=== PATIENT | male | born 1945 | race Caucasian/White ===

== ENCOUNTER → 2024-03-13 | Outpatient (CLI) | payer MEDICARE, OTHER, SELFPAY ==
--- NOTE | 2024-03-13 09:36 | PR.ITP_ITS ---
General Information2 General Information Admitting Diagnosis: COPD Secondary Diagnosis: HTN, Hyperlipidemia, GERD, COVID-19 06/21/2022 Gold Classification:: GOLD 3: Severe (GOLD Classification: severe FEV1 37%) PFT FEV1:: 39 FVC:: 103 FEV1/FVC%:: 37 Personal Learning Style/Barriers Personal Learning Style:: Audio/Visual and Written Barriers to Learning: Vision impaired Stage of change r/t lifestyle modifications: Contemplation Educational Classes IL: Living with Chronic Lung Disease: Initial Assessment, Breathing Retraining: Initial Assessment, Exercise: Initial Assessment, Energy Conservation: Initial Assessment and Medications: Initial Assessment Education/Goals Individual Counseling: Initial Assessment: High Blood Pressure [place] Patient Goals: Increase muscle strength: Initial Assessment, Experience less dyspnea: Initial Assessment, Improve energy level: Initial Assessment, Participate in home exercise: Initial Assessment, Improve the ability to cope with ADLs: Initial Assessment, Improve knowledge of lung disease: Initial Assessment, Understand how to use medications: Initial Assessment, Increase knowledge of oxygen use: Initial Assessment, Control panic/anxiety: Initial Assessment, Improve my quality of life: Initial Assessment and Reduce Stress/relaxation techniques: Initial Assessment Exercise - Initial Assessment Visit Date of Eval: 03/13/24 Session Number:: 0 (pre-program evaluation) Problem/Goals Problems: Deconditioning, Knowledge deficit exercise guidelines and Knowledge deficit exercise safety Goals:: IL: 2-3/wk for 18 weeks [36 sessions] Functional Capacity Test Number of feet walked: 640 Lowest SPO2 %: 87 O2 L/M: 2 Physician Prescribed Exercise Modalities: Treadmill, Airdyne and NuStep Frequency (days/week): 3 Duration (Minutes):: 30-45 Intensity: 60-80% of age predicted maximum heart rate reserve Current METSs:: 3.0 Target HR:: 107 (THRR 92-107) Resting Blood Pressure: 130/76 Minimum SpO2 with exercise: 98 EKG Type: NSR Plan Plan and Plan to Review:: Benefits of exercise, Core components of exercise, How to measure dyspnea level, How to monitor dyspnea level, Exercise intensity, Home exercise guidelines and Lisa: 3-4/11-13 Home Exercise Mode: Walking Nutrition/Wt Mgmt - Initial Visit Date of Eval: 03/13/24 Session Number:: 0 (Pre-program evaluation) Problems/Goals Goals: BMI 21-25 Weight Management Admit Height:: 5 ft 6 in Admit Weight:: 150 lb Admit BMI:: 24.2 Intervention Referral to dietitian:: No Will attend diet classes:: Yes Intervention/Plan: Instruct on ideal BMI & set weight loss goal w/patient Plan Nutrition Plan: Yes: Review BMI or WC & identify target wt & strategies for wt control and Yes: Nutrition education class: Nutrition/Wt Mgmt - 30-Day Visit Session Number:: 0 (Pre-program evaluation) Weight Management Height: 5 ft 6 in Weight:: 150 lb BMI: 24.2 Nutrition/Wt Mgmt - 60-Day Visit Session Number:: 0 (Pre-program evaluation) Weight Management Height: 5 ft 6 in Weight:: 150 lb BMI: 24.2 Nutrition/Wt Mgmt - 90-Day Visit Session Number:: 0 (Pre-program evaluation) Weight Management Height: 5 ft 6 in Weight:: 150 lb BMI: 24.2 Nutrition/Wt Mgmt - Final Visit Session Number:: 0 (Pre-program evaluation) Weight Management Height: 5 ft 6 in Weight:: 150 lb BMI: 24.2 Psychosocial - Initial Assess Visit Date of Eval: 03/13/24 Session Number:: 0 (Pre-program evaluation) Problems/Goals History of Emotional Disorders: None Psychosocial Goals: 1. Patient is free from overwhelming symtoms of depression (or anxiety, 2. Identifies personal stressors & states the strategies for managing, 3. Identifies activities to decrease isolation and/or symptoms of, 4. Improved psychosocial coping skills., 5. Verbalizes coping strategies., 6. Adequate treatment of depression. and 7. Improved Q.O.L. Psychosocial Test Tool Used:: Pulmonary QOL and PHQ-9 Questionnaire Referred to MD for counseling:: No Referral to Behavioral Health PS - Interventions: Yes: Attend Stress Management Classes and No: Referral to Behavioral Health if PHQ-9 score >9:, No: Referral to [facility] and No: Referral to Physician if PHQ-9 if score is 5-9: Intervention/Plan: See List Interventions/Plan:: Assess stressors,coping strategies & signs of derpression on admission, Instruct/assist pt to develop coping & personal stress Mgt strategies, Instruct patient to recognize signs & symptoms of depression and Instruct patient to recog Psychosocial - 30-Day Visit Session Number:: 0 (Pre-program evaluation) Problems/Goals History of Emotional Disorders: None Psychosocial Goals: 1. Patient is free from overwhelming symtoms of depression (or anxiety, 2. Identifies personal stressors & states the strategies for managing, 3. Identifies activities to decrease isolation and/or symptoms of, 4. Improved psychosocial coping skills., 5. Verbalizes coping strategies., 6. Adequate treatment of depression. and 7. Improved Q.O.L. Psychosocial Test Tool Used:: Pulmonary QOL and PHQ-9 Questionnaire Referred to MD for counseling:: No Referral to Behavioral Health PS - Interventions: Yes: Attend Stress Management Classes and No: Referral to Behavioral Health if PHQ-9 score >9:, No: Referral to [facility] and No: Referral to Physician if PHQ-9 if score is 5-9: Plan Interventions/Plan:: Assess stressors,coping strategies & signs of derpression on admission, Instruct/assist pt to develop coping & personal stress Mgt strategies, Instruct patient to recognize signs & symptoms of depression and Instruct patient to recog Psychosocial - 60-Day Visit Session Number:: 0 (Pre-program evaluation) Problems/Goals History of Emotional Disorders: None Psychosocial Goals: 1. Patient is free from overwhelming symtoms of depression (or anxiety, 2. Identifies personal stressors & states the strategies for managing, 3. Identifies activities to decrease isolation and/or symptoms of, 4. Improved psychosocial coping skills., 5. Verbalizes coping strategies., 6. Adequate treatment of depression. and 7. Improved Q.O.L. Psychosocial Test Tool Used:: Pulmonary QOL and PHQ-9 Questionnaire Referred to MD for counseling:: No Referral to Behavioral Health PS - Interventions: Yes: Attend Stress Management Classes and No: Referral to Behavioral Health if PHQ-9 score >9:, No: Referral to [facility] and No: Referral to Physician if PHQ-9 if score is 5-9: Plan Interventions/Plan:: Assess stressors,coping strategies & signs of derpression on admission, Instruct/assist pt to develop coping & personal stress Mgt strategies, Instruct patient to recognize signs & symptoms of depression and Instruct patient to recog Psychosocial - 90-Day Visit Session Number:: 0 (pre-program evaluation) Problems/Goals History of Emotional Disorders: None Psychosocial Goals: 1. Patient is free from overwhelming symtoms of depression (or anxiety, 2. Identifies personal stressors & states the strategies for managing, 3. Identifies activities to decrease isolation and/or symptoms of, 4. Improved psychosocial coping skills., 5. Verbalizes coping strategies., 6. Adequate treatment of depression. and 7. Improved Q.O.L. Psychosocial Test Tool Used:: Pulmonary QOL and PHQ-9 Questionnaire Referred to MD for counseling:: No Referral to Behavioral Health PS - Interventions: Yes: Attend Stress Management Classes and No: Referral to Behavioral Health if PHQ-9 score >9:, No: Referral to [facility] and No: Referral to Physician if PHQ-9 if score is 5-9: Plan Interventions/Plan:: Assess stressors,coping strategies & signs of derpression on admission, Instruct/assist pt to develop coping & personal stress Mgt strategies, Instruct patient to recognize signs & symptoms of depression and Instruct patient to recog Psychosocial - Final Assess Visit Session Number:: 0 (pre-program evaluation) Problems/Goals History of Emotional Disorders: None Psychosocial Goals: 1. Patient is free from overwhelming symtoms of depression (or anxiety, 2. Identifies personal stressors & states the strategies for managing, 3. Identifies activities to decrease isolation and/or symptoms of, 4. Improved psychosocial coping skills., 5. Verbalizes coping strategies., 6. Adequate treatment of depression. and 7. Improved Q.O.L. Psychosocial Test Tool Used:: Pulmonary QOL and PHQ-9 Questionnaire Referred to MD for counseling:: No Referral to Behavioral Health PS - Interventions: Yes: Attend Stress Management Classes and No: Referral to Behavioral Health if PHQ-9 score >9:, No: Referral to [facility] and No: Referral to Physician if PHQ-9 if score is 5-9: Plan Interventions/Plan:: Assess stressors,coping strategies & signs of derpression on admission, Instruct/assist pt to develop coping & personal stress Mgt strategies, Instruct patient to recognize signs & symptoms of depression and Instruct patient to recog Oxygen & Oxygen Titration Init Visit Date of Eval: 03/13/24 Session Number:: 0 (Pre-program evaluation) Initial Assessment Oxygen on Admission: Continuous home use (2 liters ) SpO2:: 98 Port O2:: 2 liters Goal Oxygen & Oxygen Tritration Goals: Effective hypoxemia control and Uses O2 as Rx'd/safely Plans Plan: Monitor SpO2 rest & with exercise, Train appropriate O2 use at rest, Train appropriate O2 use with exercise and Train O2 safety & systems Reviewed prescribed medications:: Purpose, Schedule, Side effects and Importance of compliance Instruct correct technique/timing & care:: MDI, DPI and Return demo use of inhaler Bronchial Hygiene Plan: Hydration, Hand hygiene, When to call MD and Signs/symptoms to report: Oxygen & Oxygen Titration 30D Visit Session Number:: 0 (pre-program evaluation) Reassessment SpO2:: 98 Oxygen & Oxygen Titration 60D Visit Session Number:: 0 (pre-program evaluation) Reassessment SpO2:: 98 Oxygen & Oxygen Titration 90D Visit Session Number:: 0 (pre-program evaluation) Reassessment SpO2:: 98 Oxygen & Oxygen Titration [place] Visit Session Number:: 0 (pre-program evaluation) Reassessment SpO2:: 98 Core Components - Initial Visit Date of Eval: 03/13/24 Session Number:: 0 (pre-program evaluation) Hypertension Hypertension Diagnosis:: Hypertension ICD-10 I10 BP: 130/76 [place] [employer] Hypertension Guidelines Low Sodium diet: No Outcomes/Goals: Able to verbalize/achieve optimal blood pressure <130/80 and Incorporates diet changes & exercise for blood pressure control by DC Tobacco - Initial Assessment Tobacco Program Goals Stages of Change:: Action Do you have family support?: Yes Tobacco Use: Non-smoker (Quit smoking in 2009.) Do you use smokeless tobacco?: No Smoking Cessation Referral:: No Individual Education/Counseling:: No Education Schedule Given:: Yes Exacerbation Mgmt & Airway Clearance Problems:: Hypoxemia Hypoxemia Goals:: Hypoxemia managed, Port system and Using O2 as Rx's safely Bronchial Hygiene Problems:: Respiratory infection Prevention/Management Goals: Pt demonstrates effective cough, effective secretion clearance. and Pt describes signs and symptoms of infection. Plan: Monitor SpO2 rest & with exercise, Train appropriate O2 use at rest, Train appropriate O2 use with exercise and Train O2 safety & systems Instruct correct technique/timing & care:: MDI, DPI and Return demo use of inhaler Bronchial Hygiene Plan: Hydration, Hand hygiene, When to call MD and Signs/symptoms to report: Medication Medication Problems: Incorrect inahled Rx use, technique Interventions/plans: Instruct on medication effects & side effects, Review medication list w/patient every two weeks and Instruct importance of taking meds as ordered & assist problem solving Medication Goals: Adherence to prescribed medications and Correct technique/timing & care of MDI, DPI, nebulizer, and spacer. Does pt report taking home meds as prescribed?: Yes Medications: Yes: MDI and Yes: DPI and N/A: Spacer Reviewed prescribed medications:: Purpose, Schedule, Side effects and Importance of compliance Diabetes Diabetes:: No Referral to dietitian:: No Will attend diet classes:: Yes Heart Failure Documenting weight daily for CHF: No Core Components - 30 DAYS Visit Session Number:: 0 (pre-program evaluation) Hypertension Hypertension Diagnosis:: Hypertension ICD-10 I10 Resting Blood Pressure:: 130/76 [place] [employer] Hypertension Guidelines Outcomes/Goals: Able to verbalize/achieve optimal blood pressure <130/80 and Incorporates diet changes & exercise for blood pressure control by DC Tobacco - 30-Day Tobacco Program Goals Stages of Change:: Action Do you have family support?: Yes Tobacco Use: Non-smoker (Quit smoking in 2009.) Do you use smokeless tobacco?: No Smoking Cessation Referral:: No Education Schedule Given:: Yes Diabetes Diabetes:: No Heart Failure Documenting weight hugh: No Core Components - 60 DAYS Visit Session Number:: 0 (pre-program evaluation) Hypertension Hypertension Diagnosis:: Hypertension ICD-10 I10 Resting Blood Pressure:: 130/76 [place] [employer] Hypertension Guidelines Outcomes/Goals: Able to verbalize/achieve optimal blood pressure <130/80 and Incorporates diet changes & exercise for blood pressure control by DC Tobacco - 60-Day Tobacco Program Goals Stages of Change:: Action Do you have family support?: Yes Tobacco Use: Non-smoker (Quit smoking in 2009.) Do you use smokeless tobacco?: No Smoking Cessation Referral:: No Individual Education/Counseling:: No Education Schedule Given:: Yes Diabetes Diabetes:: No Heart Failure Documenting weight hugh: No Core Components - 90 DAYS Visit Session Number:: 0 (pre-program evaluation) Hypertension Hypertension Diagnosis:: Hypertension ICD-10 I10 Resting Blood Pressure:: 130/76 [place] [employer] Hypertension Guidelines Outcomes/Goals: Able to verbalize/achieve optimal blood pressure <130/80 and Incorporates diet changes & exercise for blood pressure control by DC Tobacco - 90-Day Tobacco Program Goals Stages of Change:: Action Do you have family support?: Yes Tobacco Use: Non-smoker (Quit smoking in 2009.) Do you use smokeless tobacco?: No Smoking Cessation Referral:: No Individual Education/Counseling:: No Education Schedule Given:: Yes Diabetes Diabetes:: No Core Components - Final Visit Session Number:: 0 (pre-program evaluation) Hypertension Hypertension Diagnosis:: Hypertension ICD-10 I10 Resting Blood Pressure:: 130/76 [place] [employer] Hypertension Guidelines Outcomes/Goals: Able to verbalize/achieve optimal blood pressure <130/80 and Incorporates diet changes & exercise for blood pressure control by DC Tobacco - Final Tobacco Program Goals Stages of Change:: Action Do you have family support?: Yes Tobacco Use: Non-smoker (Quit smoking in 2009.) Do you use smokeless tobacco?: No Smoking Cessation Referral:: No Individual Education/Counseling:: No Education Schedule Given:: Yes Diabetes Diabetes:: No Patient Health Questionnaire PHQ-9 Screening Initial Assessment: 1. Little interest or pleasure in doing things: Several days 2. Feeling down, depressed, or hopeless: Several days 3. Trouble falling or staying asleep, or sleeping too much: Several days 4. Feeling tired or having little energy: Several days 5. Poor appetite or overeating: Several days 6. Feeling bad about yourself -- or that you are a failure or have let yourself or your family down: Not at all 7. Trouble concentrating on things, such as reading the newspaper or watching television: Not at all 8. Moving or speaking so slowly that other people could have noticed. Or the opposite - being so fidgety or restless that you have been moving around a lot more than usual: More than half the days 9. Thoughts that you would be better off , or of hurting yourself in some way: Not at all How difficult have these problems made it for you to do your work, take care of things at home, or get along with other people?: Somewhat difficult Total Score: 7 Knowledge Questionaire (BCKQ) Information Information: [place] COPD Knowledge Questionnaire (BCKQ) This questionnaire is designed to find out what you know about your lung pr oblem. It should be completed without help form anyone else. This usually takes between 10 and 20 minutes. Your answers will help us to find out what information you need to help you to understand and manage your lung condition. [place] which you think is the correct answer. Questions 1. In COPD: a. In COPD the word chronic means it is severe: True b. COPD can only be confirmed by breathing tests: True c. In COPD ther is usually gradual worsening over time: True d. In COPD oxygen levels in the blood are always low: False e. COPD is usually in people less than 40 years old: False 2. COPD: Denita than 80% of COPD cases are caused by cigarette smoking: Don't know b. COPD can be caused by occupational dust exposure: True c. Longstanding asthma can develop into COPD: Don't know d. COPD is commonly an inherited disease: False e. Women are less vunerable to the effects of cigarette than men: False 3. The following symptoms are Common in COPD: a. Swelling of the ankles is common in COPD:: Don't know b. Fatigue [tiredness] is common in COPD: True c. Wheezing is common in COPD: True d. Crushing chest pain is common in COPD: False e. Rapid weight loss is common in COPD: False 4. Breathlessness in COPD: a. Severe breathlessness prevents travel by air: Don't know b. Breathlessness can be worsened by eating large meals: True c. Breathlessness means that your oxygen levels are low: True d. Breathlessness is a normal response to exercise: False e. Breathlessness is primarily caused by a narrowing of the bronchial tubes: True 5. Phlegm (sputum): a. Coughing phlegm is a common symptom in COPD: True b. Clearing phlegm is more difficult if you get dehydrated: True c. Bronchodilator inhalers can help clear phlegm: False d. Phlegm causes harm if swallowed: Don't know e. Clearing phlegm can be assisted by breathing exercises: Don't know 6. Chest infections / exacerbations: a. Chest infections often cause coughing of blood: Don't know b. Chest infection phlegm usually becomes coloured (ylw/grn): Don't know cExerbations (episodes of worsening) can occur in the absence of chest infection: Don't know d. Chest infections are always accompanied by a high temperature: Don't know e. Steroid tablets should be taken whenever there is an exacerbation: False 7. Excercise in COPD: aWalking excercises better than breathing to improve fitness: False b. Exercise should be avoided as it strains the lungs: True c. Exercise can help maintain your bone density: True d. Exercise helps relieve depression: True e. Exercise should be stopped if it makes you breathless: True 8. Smoking: a. Stopping smoking will reduce the risk of heart disease: True b. Stopping smoking will slow down further lung damage: False c. Stopping smoking is pointless as the damage is done: False d.Stopping smoking usually results in improved lung function: False eNicotine replacement therapy only available on prescription: False 9. Vaccination: a. A flu jab is recommended every year: True b. You can get flu from having a flu jab: False c. You can only have a flu jab if you are 65 or over: False d. A pneumonia jab protects against all forms of pneumonia: True e.You can have a pneumonia jab and a flu job on the same day: True 10. Inhaled bronchodilators: a. Bronchodilators act quickly (within 10 minutes): Don't know b. Both short & long acting bronchodilators can be taken on the same day: True c. Spacers (volumatic,nebuhaler,serochamber)should be dried w/atowel after washing: Don't know d. A spacer device increases the medication to the lungs: True e. Tremor may be a side effect of bronchodilators: True 11. Antibiotic treatment in COPD: a. To be effective, the course should last at least 10 days: Don't know b. Excessive use of antibiotics can cause resistant bacteria (germs): Don't know c. Antibiotics will clear all chest infections: Don't know d. Antibiotic treatment is necessary for an exacerbation (worsening) however mild: Don't know e. Seek advice if antibiotics cause severe diarrhoea: True 12. Steroid tablets given for COPD (eg Prednisolone): a. Steroid tablets help strengthen muscles: Don't know b. Steroid tablets should be avoided if there is a chest infection: Don't know c. The risk of long-term side effects due to steroids is less w/short courses then w/continous treatment: Don't know dIndigestion is common side effect from using steroid tablet: Don't know e. Steroid tablets can increase your appetite: Don't know 13. Inhaled steroids (brown, red or orange): a. Inhaled steroids should be stopped if you are given steroid tablets: Don't know bSteroid inhalers can be used for rapid relief breathlessnes: Don't know c. Spacer devices reduce the risk of getting thrush in the mouth: Don't know d.Steroid inhaler should be taken before your bronchodilator: Don't know e. Inhaled steroids improve lung function in COPD: Don't know COPD Knowledge Test Total Score:: 29 COPD Assessment Test [CAT] Questions Never cough = 0, Cough all the time = 5: 2 No phlegm = 0, Chest full of phlegm = 5: 1 No chest tightness = 0, Chest very tight = 5: 1 No breathless w/exertion = 0, Very breathless w/exertion = 5: 5 No limitations w/activity = 0, Very limited w/activity = 5: 4 Confident leaving home = 0, Not at all confident = 5: 0 Sleep soundly = 0, Don't sleep soundly = 5: 2 Lots of energy = 0, No energy at all = 5: 4 Total CAT score:: 19 Self-Efficacy 6-Item Scale Initial Assessment: We would like to know how confident you are in doing certain activities. Please select your confidence level for: Fatigue Select Number: 7 Physical Discomfort or Pain Select Number: 7 Emotional Distress Select Number: 7 Other Symptoms or Health Problems Select Number: 10 Different Tasks and Activities Select Number: 10 Medication Select Number: 10 Total Score:: 8 Nutrition Survey Nutrition Survey Instructions Scoring Instructions Nutrition Survey Initial: Have you lost >10 lbs over the past 2 months without trying?: No Are you following a special diet at home for diabetes, low fat, or low salt?: No Are you interested in meeting with a dietitian for help understanding your diet?: Yes Do you eat less than 3 meals a day?: No Do you eat fatty meats (agarwal, sausage, ribs, etc), fried foods, desserts, large amounts of salad dressings, margarine, butter, or cheese most days?: Yes Do you have food allergies? [Enter types in comment field]: No Do you eat in restaurants more than 3 times a week?: No Do you season food with salt, seasoning salt, or garlic salt?: No Do you used canned, boxed, frozen meals, or soups, seasoning packets?: Yes Total Score:: 3
--- NOTE | 2024-03-13 09:36 | PCM.PR.HP ---
History of Present Illness General Arrival date:: 03/13/24 Arrival time:: 09:36 Date of Referral:: 02/25/22 Date of Evaluation: 03/13/24 Referring Physician: Dr. Cassie Faust @ [facility] Primary Diagnosis: COPD GOLD Classification: severe History of Present Pulmonary Event History of Present Illness: 77 yr old male patient of Dr. Cassie Faust, former smoker 50 pack years quitting in 2009. 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 mMRC Breathless Scale: When is the patient short of breath? Y/N Grade: Description of Breathlessness: Y 0 I only get breathless with strenuous exercise. Y 1 I get short of breath when hurrying on level ground or walking up a slight hill. Y 2 On level ground, I walk slower than people of the same age because of breathless, or have to stop for breath when walking at my own pace. N 3 I stop for breath after walking 100 yards or after a few minutes on level ground. N 4 I am too breathless to leave the house or I am breathless when dressing. Medications Home Medications albuterol sulfate 90 mcg/actuation aerosol inhaler (ProAir HFA) 2 inh inhalation Q4H PRN shortness of breath or wheezing 03/13/24 amlodipine 5 mg tablet 5 mg PO DAILY 03/13/24 aspirin 81 mg tablet,delayed release 81 mg PO DAILY 03/13/24 atorvastatin 20 mg tablet 20 mg PO DAILY 03/13/24 levothyroxine 100 mcg capsule 100 mcg PO DAILY 03/13/24 omeprazole 20 mg capsule,delayed release 20 mg PO DAILY 03/13/24 tiotropium-olodaterol inhalation 03/13/24 vitamin B comp and C no.3 15 mg-10 mg-50 mg-5 mg-300 mg capsule (B Complex Plus Vitamin C) 1 cap PO DAILY 03/13/24 Allergies Allergies No Known Allergies Allergy (Verified 03/13/24 09:48) Secretions Thick:: No Thin:: No Cough:: Yes AM: Yes Sleep Disorder Evaluation Hx of Sleep Apnea: No Do you snore loudly (louder than talking or can be heard through closed doors)?: Yes (seems to have subsided since being on the oxygen at night per .) Do you often feel tired/ fatigued/ sleepy during daytime?: Yes (occasionally, but nothing frequently. Since wearing the oxygen seems to have improved.) Has anyone observed you stop breathing during sleep?: No History of Hypertension (for STOP score): Yes STOP Results: Positive Medical Utilization Medical Devices Do you use a peak flow meter at home?: No Do you use a spacer device with your inhalers?: Yes Medical Utilization Number of hospital visits in the last year?: 0 Number of emergency room visits in the last year?: 0 Do you see your physician on a regular schedule?: Yes How often?: Yes; PCP 6mo, Dr Faust 6 mo Advanced Directives Advanced Directives Power of Hat And Cap Drying Room Attendant: Yes ( Kristy is his POA) Living Will: Yes Advance Directives Information Provided: No Advance Directives on File: No DNR Order?:: Yes MOLST See MOLST form: No Past Medical History Covid-19 Screening Physicial Symptoms Fever: No Unexplained muscle aches: No Current respiratory symptoms: Yes (COPD severe) Upper respiratory infections symptoms: No Gastro-intestinal symptoms: Yes (GERD) [id number] symptoms: No Other Clinical Concerns Has tested positive for COVID-19 in last 30 days: No Exposure Risk Had contact w/person w/symptoms or Covid-19 (+) last 14 days: No Has High Risk Exposures ID'd by Health dept/Inf Control team: No Pertinent Comorbidities 65 years or older:: No Lives in Assisted Living facility:: No Has a chronic lung disease or moderate to severe asthma:: Yes Has a serious heart condition:: No Immunocompromised:: No Severely obese (Body Mass Index of 40 or higher):: No Diabetic:: No Has chronic kidney disease undergoing dialysis:: Yes Has liver disease:: No Medical History Past Medical History (Updated 03/13/24 @ 10:24 by Chuck Clark, TELEPHONE SERVICE REPRESENTATIVE, SEAT JOINER, BS) Acquired hypothyroidism E03.9 Barretts esophagus K22.70 BPH (benign prostatic hyperplasia) N40.0 COPD (chronic obstructive pulmonary disease) J44.9 Ex-smoker Z87.891 Gastro-esophageal reflux disease without esophagitis K21.9 Hypertension I10 Mixed hyperlipidemia E78.2 Personal history of COVID-19 Z86.16 Preproliferative diabetic retinopathy of left eye determined by examination associated with diabetes mellitus due to underlying condition E08.3492 Stage 3 chronic kidney disease N18.30 Type II diabetes mellitus E11.9 Surgical History Past Surgical History (Updated 03/13/24 @ 09:56 by Chuck Clark CRT, SEAT JOINER, BS) H/O colonoscopy Z98.890 H/O esophagogastroduodenoscopy Z98.890 Significant Family History Family History (Updated 03/13/24 @ 09:55 by Chuck Clark CRT, SEAT JOINER, BS) Mother Diabetes Father Emphysema/COPD Sister Diabetes Brother Lung cancer Interstitial lung disease Diabetes Current/ Previous Services Pulmonary Rehab:: No Social History Smoking History Smoking Status: Former smoker Years Smokin Packs Smoked per Day: 1 Hx Smoking Cessation Date: 11/26/09 Hx Tobacco Use: Yes Hx Smoking Exposure: Yes Alcohol Use Alcohol Usage: Yes (2 standard glasses of wine per week) Substance Abuse Hx Substance Use: No Occupation Occupation (List type of work in comments):: Retired Hobbies, Recreation, Social Activities Hobbies: Sports (Golfing at [employer] with a group of guys my age ) and Other (Yard work and gardening) Recreational Activities: I am able to engage in most, but not all activities Functioning ADL/IADL Current Ability Current Ability: Independent: Self-Care (e.g.,grooming, dressing, & bathing), Independent: Ambulation, Independent: Transfer and Independent: Household tasks (e.g., light meal prep, laundry, shopping) Pt Functioning Prior to Problem Prior Functioning: Self-Care (e.g.,grooming, dressing, & bathing): Independent, Ambulation: Independent, Transfer: Independent and Household tasks (e.g., light meal prep, laundry, shopping): Independent Social Environment Status Marital Status: Current Living Arrangements Living Environment:: Spouse Children How many children do you have?: 3 (1 son ) Do any of your children live nearby?: Yes Safety Do you feel safe in your surroundings?: Yes Assistance Do you need any assistance at home?: none Review of Systems Review of Systems Review of Systems Respiratory: Reports SOB upon Exertion, Appetite, Normal and Fatigue; Denies Cough, Hemoptysis, Pleuritic Pain, SOB at Rest, Sputum production, Wheezing, Dizziness/Lightheadedness, Sexual changes or Sleep, Normal (difficult having complete night sleep getting used to wearing the oxygen at night) Pain Is Patient Pain Free?: Yes Pain Location: none Risk Factor Assessment Vital Signs Temperature: 98.9 F Pulse Rate: 82 Pulse Rhythm: Regular Respiratory Rate: 16 Pulse Ox: 98 Blood Pressure: 130/76 Diabetes Diabetic History: Type II (Pre Diabetic diagnosis on the borderline; no medications required at this time) Nutrition Referral for Diabetes: No Obesity Height: 5 ft 6 in Weight:: 150 lb Weight in Pounds: 150.0 lbs Weight Source: Stated by Patient Body Mass Index (BMI): 24.2 Nutritional Referral for Obesity: No Physical Activity Physical Inactivity: Recreational activity Risk Stratification Risk Guidelines: Lowest Risk: Risk Factor for Smoking, Risk Factor for Dyslipidemia, Risk Factor for Diabetes, Risk Factor for Obesity, Risk Factor for Sedentary Lifestyle and Risk Factor for Depression and Moderate Risk: Risk Factor for Hypertension For Smoking Smoking Risk Guidelines For Dyslipidemia Dyslipidemia Risk Guidelines For Diabetes Mellitus Diabetes Risk Guidelines For Obesity/Overweight Obesity/Overweight Risk Guidelines For Hypertension Hypertension Risk Guidelines For Sedentary Lifestyle Sedentary Lifestyle Risk Guidelines For Depression Depression Risk Guidelines Motivation Motivation to Participate On a scale of 1 to 10, how prepared are you to commit to attending program?: 10 What do you see as barriers to successfully being able to complete the program?: no What do you see as the benefits of succesfully completing the program? In other words, what do you hope to get out of participating in the program?: Do anything to get better, breath better, more active, maybe reduce O2. Are there issues you are dealing with that will interfere with completing the program?: no Do you have a spouse or signficant other, family or friends who will help support you to complete the program?: Yes Diagnostic Data Review Pulmonary Function Test FEV1:: 39 FVC:: 103 FEV1/FVC%:: 37 Gold Classification: GOLD class II(mod. COPD)with FEV1/FVC <70%, 50%</= FEV1< 50% predicted
[2024-03-13 10:08] VITALS: BP 130/76; O2SAT 98; BMI 24.2
[2024-03-13 10:13] VITALS: BP 130/76; PULSE 82; RESP 16; TEMP 37.2; O2SAT 98; BMI 24.2
== END | disposition home or self-care (01) ==
PROVIDERS: PCP Family Medicine
DX: J44.9 Chronic obstructive pulmonary disease, unspecified (principal)

== ENCOUNTER 2024-03-24 13:00 | Outpatient (RCR) | payer MEDICARE, OTHER, SELFPAY ==
[2024-03-13 10:08] VITALS: BMI 24.2
== END 2024-03-25 23:59 ==
LOC: PR 13:00
PROVIDERS: PCP Family Medicine
DX: J44.9 Chronic obstructive pulmonary disease, unspecified (principal)
CPT/HCPCS: 97150; 94626

== ENCOUNTER 2024-04-25 13:00 | Outpatient (RCR) | payer MEDICARE, OTHER, SELFPAY ==
[2024-03-13 10:08] VITALS: BMI 24.2
== END 2024-04-25 23:59 ==
LOC: PR 13:00
PROVIDERS: PCP Family Medicine
DX: J44.9 Chronic obstructive pulmonary disease, unspecified (principal)
CPT/HCPCS: 97150; 94626

== ENCOUNTER 2024-05-23 13:00 | Outpatient (RCR) | payer MEDICARE, OTHER, SELFPAY ==
[2024-03-13 10:08] VITALS: BMI 24.2
--- NOTE | 2024-05-16 05:12 | PR.ITP_ITS ---
Exercise - Initial Assessment Visit Session Number:: 25 Physician Prescribed Exercise Modalities: Treadmill, Schwinn Airdyne AD-7 and SciFit Stepper Target HR:: 120 (THRR 93-120) Current RPD:: 2-3 Maximum Exercise HR:: 116 Resting Blood Pressure: 122/78 ( ) Maximum Exercise Blood Pressure: 186/86 Minimum SpO2 with exercise: 88 (Exercised with 3 liters oxygen to maintain SpO2>90%) EKG Type: Sinus rhythm to sinus tach with occasional PVCs associated with SpO2<90. Nutrition/Wt Mgmt - Initial Visit Session Number:: 25 Weight Management Admit Height:: 5 ft 6 in Admit Weight:: 150 lb Admit BMI:: 24.2 Nutrition/Wt Mgmt - 30-Day Visit Date of Eval: 05/16/24 Session Number:: 25 Weight Management Height: 5 ft 6 in Weight:: 150 lb BMI: 24.2 Nutrition/Wt Mgmt - 60-Day Visit Date of Eval: 05/16/24 Session Number:: 25 Weight Management Weight Assessment:: BMI 21 to 25 Height: 5 ft 6 in Weight:: 150 lb BMI: 24.2 Weight Goals Progress:: Goal met Nutrition/Wt Mgmt - 90-Day Visit Session Number:: 25 Weight Management Weight Assessment:: BMI 21 to 25 Height: 5 ft 6 in Weight:: 150 lb BMI: 24.2 Weight Goals Progress:: Goal met Nutrition/Wt Mgmt - Final Visit Session Number:: 25 Weight Management Height: 5 ft 6 in Weight:: 150 lb BMI: 24.2 Psychosocial - Initial Assess Visit Session Number:: 25 Problems/Goals History of Emotional Disorders: Anxious Psychosocial Goals: 1. Patient is free from overwhelming symtoms of depression (or anxiety, 2. Identifies personal stressors & states the strategies for managing, 3. Identifies activities to decrease isolation and/or symptoms of, 4. Improved psychosocial coping skills., 5. Verbalizes coping strategies. and 7. Improved Q.O.L. Psychosocial Test Tool Used:: PHQ-9 Questionnaire Referred to MD for counseling:: No Referral to Behavioral Health PS - Interventions: Yes: Attend Stress Management Classes and No: Referral to Behavioral Health if PHQ-9 score >9:, No: Referral to [facility] and No: Referral to Physician if PHQ-9 if score is 5-9: Intervention/Plan: See List Interventions/Plan:: Instruct/assist pt to develop coping & personal stress Mgt strategies, Refer to Behavioral Health if appropriate, Instruct patient to recognize signs & symptoms of depression and Instruct patient to recog Comments:: Patient returns understanding and demonstrates stress & relaxation techniques Psychosocial - 30-Day Visit Date of Eval: 05/16/24 Session Number:: 25 Problems/Goals History of Emotional Disorders: Anxious Psychosocial Goals: 1. Patient is free from overwhelming symtoms of depression (or anxiety, 2. Identifies personal stressors & states the strategies for managing, 3. Identifies activities to decrease isolation and/or symptoms of, 4. Improved psychosocial coping skills., 5. Verbalizes coping strategies. and 7. Improved Q.O.L. Psychosocial Test Tool Used:: PHQ-9 Questionnaire Referred to MD for counseling:: No Referral to Behavioral Health PS - Interventions: Yes: Attend Stress Management Classes and No: Referral to Behavioral Health if PHQ-9 score >9:, No: Referral to [facility] and No: Referral to Physician if PHQ-9 if score is 5-9: Plan Interventions/Plan:: Instruct/assist pt to develop coping & personal stress Mgt strategies, Refer to Behavioral Health if appropriate, Instruct patient to recognize signs & symptoms of depression and Instruct patient to recog Comments:: Patient returns understanding and demonstrates stress & relaxation techniques Psychosocial - 60-Day Visit Date of Eval: 05/16/24 Session Number:: 25 Problems/Goals History of Emotional Disorders: Anxious Psychosocial Goals: 1. Patient is free from overwhelming symtoms of depression (or anxiety, 2. Identifies personal stressors & states the strategies for managing, 3. Identifies activities to decrease isolation and/or symptoms of, 4. Improved psychosocial coping skills., 5. Verbalizes coping strategies. and 7. Improved Q.O.L. Psychosocial Test Tool Used:: PHQ-9 Questionnaire Referred to MD for counseling:: No Referral to Behavioral Health PS - Interventions: Yes: Attend Stress Management Classes and No: Referral to [facility] if PHQ-9 score >9:, No: Referral to [facility] and No: Referral to Physician if PHQ-9 if score is 5-9: Plan Interventions/Plan:: Instruct/assist pt to develop coping & personal stress Mgt strategies, Refer to Behavioral Health if appropriate, Instruct patient to recognize signs & symptoms of depression and Instruct patient to recog Comments:: Patient returns understanding and demonstrates stress & relaxation techniques Psychosocial - 90-Day Visit Session Number:: 25 Problems/Goals History of Emotional Disorders: Anxious Psychosocial Goals: 1. Patient is free from overwhelming symtoms of depression (or anxiety, 2. Identifies personal stressors & states the strategies for managing, 3. Identifies activities to decrease isolation and/or symptoms of, 4. Improved psychosocial coping skills., 5. Verbalizes coping strategies. and 7. Improved Q.O.L. Psychosocial Test Tool Used:: PHQ-9 Questionnaire Referred to MD for counseling:: No Referral to Behavioral Health PS - Interventions: Yes: Attend Stress Management Classes and No: Referral to Behavioral Health if PHQ-9 score >9:, No: Referral to [facility] and No: Referral to Physician if PHQ-9 if score is 5-9: Plan Interventions/Plan:: Instruct/assist pt to develop coping & personal stress Mgt strategies, Refer to Behavioral Health if appropriate, Instruct patient to recognize signs & symptoms of depression and Instruct patient to recog Comments:: Patient returns understanding and demonstrates stress & relaxation techniques Psychosocial - Final Assess Visit Session Number:: 25 Problems/Goals History of Emotional Disorders: Anxious Psychosocial Goals: 1. Patient is free from overwhelming symtoms of depression (or anxiety, 2. Identifies personal stressors & states the strategies for managing, 3. Identifies activities to decrease isolation and/or symptoms of, 4. Improved psychosocial coping skills., 5. Verbalizes coping strategies. and 7. Improved Q.O.L. Psychosocial Test Tool Used:: PHQ-9 Questionnaire Referred to MD for counseling:: No Referral to Behavioral Health PS - Interventions: Yes: Attend Stress Management Classes and No: Referral to Behavioral Health if PHQ-9 score >9:, No: Referral to [facility] and No: Referral to Physician if PHQ-9 if score is 5-9: Plan Interventions/Plan:: Instruct/assist pt to develop coping & personal stress Mgt strategies, Refer to Behavioral Health if appropriate, Instruct patient to nayan gnize signs & symptoms of depression and Instruct patient to recog Comments:: Patient returns understanding and demonstrates stress & relaxation techniques Oxygen & Oxygen Titration Init Visit Session Number:: 25 Initial Assessment SpO2:: 88 (Exercised with 3 liters oxygen to maintain SpO2>90%) Oxygen & Oxygen Titration 30D Visit Date of Eval: 05/16/24 Session Number:: 25 Reassessment Breath Sounds:: Diminished and Insp. & Exp. Wheezing SpO2:: 88 (Exercised with 3 liters oxygen to maintain SpO2>90%) Airway Clearance: Return demonstration use of mucus clearance device Oxygen & Oxygen Titration 60D Visit Date of Eval: 05/16/24 Session Number:: 25 Reassessment Reassessment- 60 Days: Demonstrate knowledge of O2 Rx at rest & w/exercise and Using O2 as Rx'd Breath Sounds:: Diminished and Insp. & Exp. Wheezing SpO2:: 88 (Exercised with 3 liters oxygen to maintain SpO2>90%) Airway Clearance: Return demonstration use of mucus clearance device Oxygen & Oxygen Titration 90D Visit Date of Eval: 05/16/24 Session Number:: 25 Reassessment Breath Sounds:: Diminished and Insp. & Exp. Wheezing SpO2:: 88 (Exercised with 3 liters oxygen to maintain SpO2>90%) Airway Clearance: Return demonstration use of mucus clearance device Oxygen & Oxygen Titration [place] Visit Date of Eval: 05/16/24 Session Number:: 25 Reassessment Breath Sounds:: Diminished and Insp. & Exp. Wheezing SpO2:: 88 (Exercised with 3 liters oxygen to maintain SpO2>90%) Airway Clearance: Return demonstration use of mucus clearance device Core Components - Initial Visit Session Number:: 25 Hypertension Hypertension Diagnosis:: Hypertension ICD-10 I10 BP: 134/76 [employer] Hypertension Guidelines Blood Pressure: 186/86 Outcomes/Goals: Able to verbalize/achieve optimal blood pressure <130/80 and Incorporates diet changes & exercise for blood pressure control by DC Tobacco - Initial Assessment Tobacco Program Goals Do you have family support?: Yes Education Schedule Given:: Yes Gave Education Materials For:: Pulmonary Disease, Risk Factors, Breathing Techniques, Medical Compliance, Pulmonary A&P, Exacerbation Signs & Symptoms and Stress & Relaxation Diabetes Diabetes:: No Heart Failure Documenting weight daily for CHF: No [employer] Components - 30 DAYS Visit Date of Eval: 05/16/24 Session Number:: 25 Hypertension Hypertension Diagnosis:: Hypertension ICD-10 I10 Resting Blood Pressure:: 134/76 [employer] Hypertension Guidelines Peak Exercise Blood Pressure:: 186/86 Change in medication: No Outcomes/Goals: Able to verbalize/achieve optimal blood pressure <130/80 and Incorporates diet changes & exercise for blood pressure control by DC Interventions/plan: Instruct on optimal blood pressure, hypertension & medications and Instruct on effects of sodium, alcohol, stress, exercise &hypertension Comments: Review Multi-session (Monthly Report) in EMR for resting BPs 30 day Reassessments:: Progressing Tobacco - 30-Day Tobacco Program Goals Do you have family support?: Yes Education Schedule Given:: Yes Gave Education Materials For:: Pulmonary Disease, Risk Factors, Breathing Techniques, Medical Compliance, Pulmonary A&P, Exacerbation Signs & Symptoms and Stress & Relaxation 30-day Reassessments:: Met Exacerbation Mgmt & Airway Clearance Reassessment: Demonstrates knowledge of O2 Rx at rest and Demonstrates knowledge of O2 Rx with exercise Bronchial Hygiene Plan: Yes: Pt demonstrates correctly for effective cough, Yes: Pt demo correct for device (Return demonstration use of mucus clearance device), Yes: Pt demo correct for improved hydration, Yes: Pt demo correct for hand hygiene and Yes: Pt demo correct for verbalize when to call MD Medication Taking medications 100% of the time:: Met Medication reassessment: Yes: Pt demonstrates correct technique timing for MDI, Yes: Pt demonstrates correct technique timing for DPI, Yes: Pt demonstrates correct technique timing for NEB and Yes: Pt demonstrates correct technique timing for spacer (Demonstrates proper technique use w/MDI) Diabetes Diabetes:: No Heart Failure Documenting weight hugh: No [employer] - 60 DAYS Visit Date of Eval: 05/16/24 Session Number:: 25 Hypertension Hypertension Diagnosis:: Hypertension ICD-10 I10 Resting Blood Pressure:: 134/76 [employer] Hypertension Guidelines Peak Exercise Blood Pressure:: 186/86 Change in medication: No Outcomes/Goals: Able to verbalize/achieve optimal blood pressure <130/80 and Incorporates diet changes & exercise for blood pressure control by DC Interventions/plan: Instruct on optimal blood pressure, hypertension & medications and Instruct on effects of sodium, alcohol, stress, exercise &hypertension Comments: Review Multi-session (Monthly Report) in EMR for resting BPs 60 day Reassessments:: Progressing Tobacco - 60-Day Tobacco Program Goals Do you have family support?: Yes Education Schedule Given:: Yes Gave Education Materials For:: Pulmonary Disease, Risk Factors, Breathing Techniques, Medical Compliance, Pulmonary A&P, Exacerbation Signs & Symptoms and Stress & Relaxation 60-day Reassessments:: Met Exacerbation Mgmt & Airway Clearance Reassessment: Demonstrates knowledge of O2 Rx at rest and Demonstrates knowledge of O2 Rx with exercise Bronchial Hygiene Plan: Yes: Pt demonstrates correctly for effective cough, Yes: Pt demo correct for device (Return demonstration use of mucus clearance device), Yes: Pt demo correct for improved hydration, Yes: Pt demo correct for hand hygiene and Yes: Pt demo correct for verbalize when to call MD Medication Medication list reviewed:: Yes Taking medications 100% of the time:: Met Taking medications 100% of the time:: Met Medication reassessment: Yes: Pt demonstrates correct technique timing for MDI, Yes: Pt demonstrates correct technique timing for DPI, Yes: Pt demonstrates adelina ect technique timing for NEB and Yes: Pt demonstrates correct technique timing for spacer (Demonstrates proper technique use w/MDI) 60-day Reassessments:: Met Diabetes Diabetes:: No Heart Failure Documenting weight hugh: No [employer] Components - 90 DAYS Visit Session Number:: 25 Hypertension Hypertension Diagnosis:: Hypertension ICD-10 I10 Resting Blood Pressure:: 134/76 [employer] Hypertension Guidelines Peak Exercise Blood Pressure:: 186/86 Outcomes/Goals: Able to verbalize/achieve optimal blood pressure <130/80 and Incorporates diet changes & exercise for blood pressure control by DC Interventions/plan: Instruct on optimal blood pressure, hypertension & medications and Instruct on effects of sodium, alcohol, stress, exercise &hypertension Comments: Review Multi-session (Monthly Report) in EMR for resting BPs 90 day Reassessments:: Progressing Tobacco - 90-Day Tobacco Program Goals Do you have family support?: Yes Education Schedule Given:: Yes Gave Education Materials For:: Pulmonary Disease, Risk Factors, Breathing Techniques, Medical Compliance, Pulmonary A&P, Exacerbation Signs & Symptoms and Stress & Relaxation 90-day Reassessments:: Met Exacerbation Mgmt & Airway Clearance Bronchial Hygiene Plan: Yes: Pt demonstrates correctly for effective cough, Yes: Pt demo correct for device (Return demonstration use of mucus clearance device), Yes: Pt demo correct for improved hydration, Yes: Pt demo correct for hand hygiene and Yes: Pt demo correct for verbalize when to call MD Medication Medication reassessment: Yes: Pt demonstrates correct technique timing for MDI, Yes: Pt demonstrates correct technique timing for DPI, Yes: Pt demonstrates correct technique timing for NEB and Yes: Pt demonstrates correct technique timing for spacer (Demonstrates proper technique use w/MDI) Diabetes Diabetes:: No [employer] Components - Final Visit Session Number:: 25 Hypertension Hypertension Diagnosis:: Hypertension ICD-10 I10 Resting Blood Pressure:: 134/76 [employer] Hypertension Guidelines Peak Exercise Blood Pressure:: 186/86 Outcomes/Goals: Able to verbalize/achieve optimal blood pressure <130/80 and Incorporates diet changes & exercise for blood pressure control by DC Tobacco - Final Tobacco Program Goals Do you have family support?: Yes Education Schedule Given:: Yes Exacerbation Mgmt & Airway Clearance Bronchial Hygiene Plan: Yes: Pt demonstrates correctly for effective cough, Yes: Pt demo correct for device (Return demonstration use of mucus clearance device), Yes: Pt demo correct for improved hydration, Yes: Pt demo correct for hand hygiene and Yes: Pt demo correct for verbalize when to call MD Medication Medication reassessment: Yes: Pt demonstrates correct technique timing for MDI, Yes: Pt demonstrates correct technique timing for DPI, Yes: Pt demonstrates correct technique timing for NEB and Yes: Pt demonstrates correct technique timing for spacer (Demonstrates proper technique use w/MDI) Diabetes Diabetes:: No Patient Health Questionnaire PHQ-9 Screening 60-Day Re-eval Assessment: 1. Little interest or pleasure in doing things: Not at all 2. Feeling down, depressed, or hopeless: Not at all 3. Trouble falling or staying asleep, or sleeping too much: Several days 4. Feeling tired or having little energy: Several days 5. Poor appetite or overeating: Several days 6. Feeling bad about yourself -- or that you are a failure or have let yourself or your family down: Not at all 7. Trouble concentrating on things, such as reading the newspaper or watching television: Not at all 8. Moving or speaking so slowly that other people could have noticed. Or the opposite - being so fidgety or restless that you have been moving around a lot more than usual: Several days 9. Thoughts that you would be better off , or of hurting yourself in some way: Not at all Total Score: 4 Knowledge Questionaire (BCKQ) Information Information: [place] COPD Knowledge Questionnaire (BCKQ) This questionnaire is designed to find out what you know about your lung pr oblem. It should be completed without help form anyone else. This usually takes between 10 and 20 minutes. Your answers will help us to find out what information you need to help you to understand and manage your lung condition. [place] which you think is the correct answer. Self-Efficacy 6-Item Scale 60-Day Re-eval Assessment: We would like to know how confident you are in doing certain activities. Please select your confidence level for: Fatigue Select Number: 8 Physical Discomfort or Pain Select Number: 8 Emotional Distress Select Number: 8 Other Symptoms or Health Problems Select Number: 10 Different Tasks and Activities Select Number: 10 Medication Select Number: 10 Total Score:: 9 Nutrition Survey Nutrition Survey Instructions Scoring Instructions
[2024-05-16 05:25] VITALS: BP 122/78; BP 134/76; BP 186/86; O2SAT 88; BMI 24.2
== END 2024-05-25 23:59 ==
LOC: PR 13:00
PROVIDERS: PCP Family Medicine
DX: J44.9 Chronic obstructive pulmonary disease, unspecified (principal)
CPT/HCPCS: 97150; 94626

== ENCOUNTER 2024-06-11 12:45 | Outpatient (RCR) | payer MEDICARE, OTHER, SELFPAY ==
[2024-05-16 05:25] VITALS: BMI 24.2
[2024-05-26 00:13] VITALS: BP 122/78; BP 134/76; BP 186/86; BMI 24.2
== END 2024-06-25 23:59 ==
LOC: PR 12:45
PROVIDERS: PCP Family Medicine
DX: J44.9 Chronic obstructive pulmonary disease, unspecified (principal)
CPT/HCPCS: 97150; 94626